=== PATIENT | male | born 1980 | race African-American/Black ===

== ENCOUNTER 2018-07-08 22:55 | Emergency (ER) | payer OTHER ==
[2018-07-08] MEDS ORDERED: Lidocaine 1% w/Epinephrine 1:100K 20 ML VIAL ONE (23:18)
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
== END 2018-07-09 00:20 ==
LOC: SCSER 22:55
DX: S01.511A Laceration without foreign body of lip, initial encounter (principal); S60.221A Contusion of right hand, initial encounter; I10 Essential (primary) hypertension; E11.9 Type 2 diabetes mellitus without complications; Y04.0XXA Assault by unarmed brawl or fight, initial encounter
CPT/HCPCS: 12001; J2001